=== PATIENT | male | born 1965 | race Two or more races ===

== ENCOUNTER → 2025-05-17 | Emergency (ER) | payer OTHER ==
[~2025-05-17] VITALS: Ht 165.1 cm; Wt 54.4 kg
[~2025-05-17] MED LIST: ARBLI10 MG/1 ML
== END | disposition left against medical advice (07) ==
LOC: ER 21:39
DX: Z53.21 Procedure and treatment not carried out due to patient leaving prior to being seen by health care provider (principal)